=== PATIENT | female | born 1970 | race African-American/Black ===

== ENCOUNTER → 2016-08-06 | Outpatient (CLI) | payer OTHER | LOC: RAD 03:46 | DX: Z12.31 Encounter for screening mammogram for malignant neoplasm of breast (principal) ==

== ENCOUNTER → 2017-09-05 | Outpatient (CLI) | payer OTHER | LOC: RAD 02:03 | DX: Z12.31 Encounter for screening mammogram for malignant neoplasm of breast (principal) ==

== ENCOUNTER → 2018-09-30 | Outpatient (CLI) | payer OTHER | LOC: RAD 09-23 09:25 | DX: Z12.31 Encounter for screening mammogram for malignant neoplasm of breast (principal) ==

== ENCOUNTER → 2019-10-07 | Outpatient (CLI) | payer OTHER | LOC: BC 10:15 | DX: Z12.31 Encounter for screening mammogram for malignant neoplasm of breast (principal) ==

== ENCOUNTER → 2020-10-16 | Outpatient (CLI) | payer OTHER | LOC: BC 10-09 11:28 | DX: Z12.31 Encounter for screening mammogram for malignant neoplasm of breast (principal) ==